=== PATIENT | female | born 1985 | race Caucasian/White ===

== ENCOUNTER 2017-11-25 11:25 | Outpatient (CLI) | payer OTHER | END 2017-11-25 13:55 | disposition home or self-care (01) | LOC: OBT 11:25 → L-D 11:25 → OBT 13:55 | DX: O26.893 Other specified pregnancy related conditions, third trimester (principal); N89.8 Other specified noninflammatory disorders of vagina; O34.219 Maternal care for unspecified type scar from previous cesarean delivery; Z3A.36 36 weeks gestation of pregnancy | CPT/HCPCS: 76818 ==

== ENCOUNTER 2017-12-02 22:42 | Outpatient (CLI) | payer OTHER | END 2017-12-03 01:02 | disposition home or self-care (01) | LOC: OBT 22:42 → L-D 22:43 | DX: O47.1 False labor at or after 37 completed weeks of gestation (principal); Z3A.38 38 weeks gestation of pregnancy | CPT/HCPCS: 76818 ==

== ENCOUNTER 2017-12-06 05:00 | Inpatient (IN) | payer OTHER ==
[2017-12-06 05:47] LABS: ADD UMIC YES; UR ASCORBIC ACID NEGATIVE (NEGATIVE); UR BACTERIA FEW /HPF (NONE SEEN); UR BILIRUBIN (Dip) NEGATIVE (NEGATIVE); UR BLOOD (Dip) NEGATIVE (NEGATIVE); UR CLARITY CLOUDY (CLEAR); UR COLOR YELLOW (YELLOW); UR GLUCOSE (Dip) NEGATIVE (NEGATIVE); UR KETONES (Dip) NEGATIVE (NEGATIVE); UR LEUKOCYTE ESTERASE (Dip) TRACE Leu/ul (NEGATIVE); UR MUCUS FEW /HPF (NONE SEEN); UR NITRITE (Dip) NEGATIVE (NEGATIVE); UR RBC 3 /HPF (0-5); UR SPECIFIC GRAVITY (Dip) 1.024 (1.003-1.030); UR SQUAMOUS EPITHELIAL CELL MANY /HPF (FEW); UR TOTAL PROTEIN (Dip) 1+ mg/dl (NEGATIVE); UR UROBILINOGEN (Dip) 1+ mg/dL (NEGATIVE); UR WBC 5 /HPF (0-5)
[2017-12-06] MEDS ORDERED: MISOPROSTOL 200 MCG TAB PR ×2 (06:30→13:00)
[2017-12-06] MEDS ORDERED: CARBOPROST 250 MCG INJ IM ×2 (06:30→13:00)
[2017-12-06] MEDS ORDERED: OXYTOCIN 30 UNITS/LR 500 ML IV ×2 (06:30→13:00)
[2017-12-06] MEDS ORDERED: METHYLERGONOVINE 0.2 MG INJ IM ×2 (06:30→13:00)
[2017-12-06] MEDS: LACTATED RINGER'S 1,000 ML IV (06:37)
[2017-12-06 07:09] LABS: ADD MAN DIFF? NO
[2017-12-06 07:14] LABS: BASOPHILS % 0.3 % (0.0-2.0); EOSINOPHILS # 0.1 10^3/ul (0.0-0.5); EOSINOPHILS % 0.9 % (0.0-7.0); HEMATOCRIT 35.9 % (37.0-47.0); HEMOGLOBIN 11.9 g/dl (12.0-16.0); LYMPHOCYTES # 2.5 10^3/ul (0.8-2.9); LYMPHOCYTES % 24.8 % (15.0-51.0); MEAN CORPUSCULAR HEMOGLOBIN 28.1 pg (29.0-33.0); MEAN CORPUSCULAR HGB CONC 33.1 g/dl (32.0-37.0); MEAN CORPUSCULAR VOLUME 84.9 fl (82.0-101.0); MONOCYTE # 0.5 10^3/ul (0.3-0.9); MONOCYTES % 5.3 % (0.0-11.0); NEUTROPHIL # 6.8 10^3/ul (1.6-7.5); NEUTROPHILS % 68.2 % (39.0-77.0); PLATELET COUNT 217 10^3/UL (140-415); RED BLOOD COUNT 4.23 10^6/ul (4.20-5.40); RED CELL DISTRIBUTION WIDTH 13.2 % (11.5-14.5)
[2017-12-06 07:14] LABS: WHITE BLOOD COUNT 9.9 10^3/ul (4.8-10.8)
[2017-12-06] MEDS ORDERED: TERBUTALINE 1 ML (07:16)
[2017-12-06] MEDS: TERBUTALINE 1 MG/ML INJ SC (07:18)
[2017-12-06 07:34] LABS: INR 0.88; PARTIAL THROMBOPLASTIN TIME 27.2 Sec (23.0-35.0); PT RATIO 0.9
[2017-12-06 08:11] LABS: HEPATITIS B SURFACE ANTIGEN NEGATIVE (NEGATIVE)
[2017-12-06] MEDS ORDERED: CITRIC ACID/NA CITRATE 30 ML CUP (08:11)
[2017-12-06] MEDS: CITRIC ACID/NA CITRATE 30 ML CUP PO (08:12)
[2017-12-06] MEDS ORDERED: morphine SULFATE/PF (10 MG/10 ML) INJ (08:46)
[2017-12-06] MEDS ORDERED: KETOROLAC 30 MG INJ (08:56)
[2017-12-06] MEDS ORDERED: METOCLOPRAMIDE 10 MG INJ (08:56)
[2017-12-06] MEDS ORDERED: ONDANSETRON 4 MG INJ ×2 (08:56→11:35)
[2017-12-06] MEDS ORDERED: FENTAnyl 50 MCG/ML VIAL (09:36)
[2017-12-06] MEDS ORDERED: EPHEDrine SULFATE 50 MG/5 ML SYG (10:28)
[2017-12-06] MEDS ORDERED: PROPOFOL 20 ML (10:28)
[2017-12-06] MEDS: ONDANSETRON 4 MG INJ IV ×2 (11:52→15:43)
[2017-12-06] MEDS: OXYTOCIN 30 UNITS/LR 500 ML IV ×4 (11:53→23:47)
[2017-12-06] MEDS ORDERED: morphine (1 MG/ML) 10ML SYRINGE IV ×3 (12:00)
[2017-12-06] MEDS ORDERED: NALOXONE (0.4 MG/ML) INJ IV (12:00)
[2017-12-06] MEDS ORDERED: METOCLOPRAMIDE 10 MG INJ IV (12:00)
[2017-12-06] MEDS ORDERED: morphine 2 MG INJ IV ×3 (12:00)
[2017-12-06] MEDS: CEFAZOLIN 2 GM/50 ML (PMX) 50 ML IV (12:27)
[2017-12-06] MEDS ORDERED: OXYCODONE/ACETAMINOPHEN (5/325) TAB PO ×2 (13:00)
[2017-12-06] MEDS: KETOROLAC 30 MG INJ IV (13:12)
[2017-12-06] MEDS: CEFAZOLIN 1 GM/50 ML (PMX) 50 ML IVPB (14:27)
[2017-12-06] MEDS: LANOLIN 7 GM TUBE TOP (14:27)
[2017-12-06 16:04] LABS: RAPID PLASMA REAGIN REACTIVE (NR)
[2017-12-06] MEDS: DIPHENHYDRAMINE 50 MG INJ IV (16:26)
[2017-12-06] MEDS: SENNA/DOCUSATE NA (8.6MG/50MG) TAB PO (21:38)
[2017-12-07] MEDS: OXYTOCIN 30 UNITS/LR 500 ML IV ×6 (00:35→19:26)
[2017-12-07] MEDS: KETOROLAC 30 MG INJ IV (00:58)
[2017-12-07] MEDS: LACTATED RINGER'S 1,000 ML IV (04:44)
[2017-12-07 08:34] LABS: ADD MAN DIFF? NO
[2017-12-07 08:41] LABS: BASOPHILS % 0.2 % (0.0-2.0); EOSINOPHILS # 0.1 10^3/ul (0.0-0.5); EOSINOPHILS % 0.5 % (0.0-7.0); HEMATOCRIT 31.1 % (37.0-47.0); HEMOGLOBIN 10.1 g/dl (12.0-16.0); LYMPHOCYTES # 1.5 10^3/ul (0.8-2.9); LYMPHOCYTES % 13.8 % (15.0-51.0); MEAN CORPUSCULAR HGB CONC 32.5 g/dl (32.0-37.0); MEAN CORPUSCULAR VOLUME 86.1 fl (82.0-101.0); MONOCYTE # 0.5 10^3/ul (0.3-0.9); MONOCYTES % 4.9 % (0.0-11.0); NEUTROPHIL # 8.8 10^3/ul (1.6-7.5); NEUTROPHILS % 80.3 % (39.0-77.0); PLATELET COUNT 180 10^3/UL (140-415); RED BLOOD COUNT 3.61 10^6/ul (4.20-5.40); RED CELL DISTRIBUTION WIDTH 13.2 % (11.5-14.5)
[2017-12-07 08:41] LABS: WHITE BLOOD COUNT 10.9 10^3/ul (4.8-10.8)
[2017-12-07] MEDS: SENNA/DOCUSATE NA (8.6MG/50MG) TAB PO ×2 (09:21→21:32)
[2017-12-07] MEDS: FERROUS SULFATE (EC) 325 MG TAB PO (09:22)
[2017-12-07] MEDS: IBUPROFEN 600 MG TAB PO ×3 (12:08→23:53)
[2017-12-07] MEDS: HYDROCODONE/APAP (5/325) TAB PO (17:28)
[2017-12-08] MEDS: OXYTOCIN 30 UNITS/LR 500 ML IV ×6 (00:35→21:43)
[2017-12-08] MEDS: IBUPROFEN 600 MG TAB PO ×4 (05:42→23:49)
[2017-12-08] MEDS: FERROUS SULFATE (EC) 325 MG TAB PO (09:08)
[2017-12-08] MEDS: SENNA/DOCUSATE NA (8.6MG/50MG) TAB PO ×2 (09:08→22:19)
[2017-12-09] MEDS: OXYTOCIN 30 UNITS/LR 500 ML IV ×3 (00:35→08:35)
[2017-12-09] MEDS: IBUPROFEN 600 MG TAB PO ×2 (05:35→11:11)
[2017-12-09] MEDS: FERROUS SULFATE (EC) 325 MG TAB PO (08:25)
[2017-12-09] MEDS: SENNA/DOCUSATE NA (8.6MG/50MG) TAB PO (08:26)
[2017-12-09] MEDS: HYDROCODONE/APAP (5/325) TAB PO (08:26)
[2017-12-09] MEDS: DIPHTH/TET/ACEL PERTUSS (ADULT) 0.5 ML VIAL IM* (09:00)
== END 2017-12-09 13:10 | disposition home or self-care (01) | DRG 788 ==
LOC: OBT 05:00 → L-D 05:00 → OBT 06:10 → L-D 06:10 → PP1 12:34
PROC: 10D00Z1 Extraction of Products of Conception, Low, Open Approach (ICD-10-PCS; principal; 2017-12-06 08:30)
DX: O34.219 Maternal care for unspecified type scar from previous cesarean delivery (principal); O99.02 Anemia complicating childbirth; D64.9 Anemia, unspecified; Z37.0 Single live birth; Z3A.38 38 weeks gestation of pregnancy
CPT/HCPCS: 36415; 81001; 85025; 85610; 85730; 86592; 86850; 86900; 86901; 87086; 87340; 90715; 99464